=== PATIENT | female | born 1985 | race Caucasian/White ===

== ENCOUNTER 2016-07-14 12:28 | Outpatient (CLI) | payer OTHER ==
--- NOTE | 2016-07-14 14:42 | Ultrasound Report ---
OB ULTRASOUND: 07/14/2016 CLINICAL INDICATION: anatomy. 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 LAST MENSTRUAL PERIOD 02/10/2016 Clinical Age 22 weeks 1 day US Age 22 weeks 1 day EFW Hadlock 493 g EFW% Hadlock 52 % Heart Rate 150 bpm EDC 11/16/2016 US EDC 11/16/2016 BPD Hadlock 21 weeks 5 days; means mm 51.9 HC Hadlock 22 weeks 0 days; means mm 197.8 AC Hadlock 22 weeks 6 days; means mm 180.7 FL Hadlock 21 weeks 5 days; means mm 36.8 Presentation moving Placental Location anterior R Cervical Length 3.9 cm Amniotic Fluid 15.6 (50-95%) FINDINGS: There is a single viable intrauterine gestation, in variable position. heart rate is 150 BPM. The placenta is anterior, without evidence of previa. Amniotic fluid volume is normal, with an VIANEY of 15.6. By size, the fetus measures 22.1 weeks (22.1 weeks by LMP). The following anatomic structures were visualized and appear normal: The intracranial contents, including the ventricles and posterior fossa; the lips and orbits; the spine; the heart, including 4 chamber view and outflow tracts, and diaphragm; the abdominal contents, including the stomach, the bilateral kidneys, and urinary bladder, as well as a normal 3 vessel cord insertion; 4 limbs. Mild bilateral renal pelviectasis is present, measuring 4 mm on each side. No free fluid or adnexal lesion is appreciated. IMPRESSION: SINGLE VIABLE INTRAUTERINE GESTATION, WITH SIZE IN KEEPING WITH LMP DATING. MILD BILATERAL RENAL PELVIECTASIS. FOLLOWUP IN THE THIRD TRIMESTER IS RECOMMENDED. OTHERWISE, NORMAL ANATOMIC SURVEY. MTDD
== END 2016-07-14 12:29 | disposition home or self-care (01) ==
LOC: DI 12:28
PROVIDERS: ATTEND Advanced Practice Midwife
DX: Z36 Encounter for antenatal screening of mother (principal); O36.8920 Maternal care for other specified fetal problems, second trimester, not applicable or unspecified
CPT/HCPCS: 76811

== ENCOUNTER 2016-12-02 02:11 | Outpatient (CLI) | payer OTHER | END 2016-12-02 02:12 | disposition critical access hospital (66) | LOC: EMS 02:11 | PROVIDERS: ATTEND Surgery | DX: R42 Dizziness and giddiness (principal) | CPT/HCPCS: A0425; A0429 ==

== ENCOUNTER 2016-12-02 02:37 | Emergency (ER) | payer OTHER ==
--- NOTE | 2016-12-02 03:08 | ED Physician Documentation ---
History of Present Illness - Stated complaint Stated Complaint: DIZZINESS - Chief complaint Chief Complaint: General - History obtained from History obtained from: Patient, Family (spouse) - History of Present Illness Timing: Today Pain level now: 0 Improved by: no ameliorating factors Worsened by: no exacerbating factors - Additonal information Additional information: patient delivered 40 week 5 day baby, induced vaginal delivery on 11/29/16 at [facility]. Patient says she had HTN towards the end of the and received a dose of beta-viviana for this while in the hospital, but she has otherwise not needed antihypertensive medications before or after this. She was cautioned to watch for HTN post-delivery at home, particularly systolic readings of 160 or greater. Patient awoke 1:30 AM this morning to breast feed her when she developed shaking chills, lightheadedness. Patient took her blood pressure with home cuff and had several consecutive readings of hypertensive readings, with diastolic as high as 100s and systolic as high as 160s. her symptoms have resolved and on my evaluation, she has no c/o. She has had mild swelling, BLE> BUE. Denies headache, abdominal pain, dyspnea, visual changes. PD PAST MEDICAL HISTORY - Past Medical History Past Medical History: No Cardiovascular: None Respiratory: None Neuro: None Endocrine/Autoimmune: None GI: None DISTILLERY MILLER: None : None HEENT: None Psych: None Musculoskeletal: None Derm: None Other Past Medical History: POST DELIVERY HYPERTENSION.... - Past Surgical History Past Surgical History: No - Allergies Allergies/Adverse Reactions: Allergies Allergy/AdvReac Type Severity Reaction Status Date / Time amoxicillin AdvReac Rash Verified 12/02/16 02:50 azithromycin [From Zithromax] AdvReac Rash Verified 12/02/16 02:50 - Social History Does the pt smoke?: No Smoking Status: Never smoker Does the pt drink ETOH?: No Does the pt have substance abuse?: No - Immunizations Immunizations are current?: Yes - POLST Patient has POLST: No PD ED PE NORMAL - Vitals Vital signs reviewed: Yes - General General: Alert and oriented X 3, No acute distress, Well developed/nourished - Neck Neck: Supple, no meningeal sign - Cardiac Cardiac: RRR, No murmur - Respiratory Respiratory: No respiratory distress, Clear bilaterally - Abdomen Abdomen: Soft, Non tender - Extremities Extremities: Other (1+ BLE edema, feet and ankles) - Neuro Neuro: Alert and oriented X 3, mold builder 2-12 intact, No motor deficit, No sensory deficit Results - Vitals Vitals: Oxygen O2 Source Room air - Labs Labs: Laboratory Tests 12/02/16 12/02/16 12/02/16 03:45 04:01 04:01 WBC 13.2 H RBC 4.04 L Hgb 12.5 Hct 36.3 L MCV 89.8 MCH 30.8 MCHC 34.4 RDW 13.1 Plt Count 274 MPV 6.7 L Neut # 10.5 H Lymph # 1.8 Dupage # 0.6 Eos # 0.2 Baso # 0.1 Absolute Nucleated RBC 0.00 Nucleated RBCs 0.0 Sodium 139 Potassium 3.7 Chloride 104 Carbon Dioxide 25 Anion Gap 10.0 BUN 9 Creatinine 0.6 Estimated GFR (MDRD) 115 Glucose 86 Calcium 8.7 Total Bilirubin 0.3 AST 30 ALT 27 Alkaline Phosphatase 77 Total Protein 6.3 L Albumin 3.1 L Globulin 3.2 Albumin/Globulin Ratio 1.0 Lipase 20 L Urine Color ORANGE Urine Clarity CLEAR Urine pH 7.0 Ur Specific [place] <=1.005 Urine Protein NEGATIVE Urine Glucose (UA) NEGATIVE Urine Ketones NEGATIVE Urine Occult Blood LARGE H Urine Nitrite NEGATIVE Urine Bilirubin NEGATIVE Urine Urobilinogen 0.2 (NORMAL) Ur Leukocyte Esterase SMALL H Urine RBC TNTC H Urine WBC 11-25 H Ur Squamous Epith Cells RARE Squamous Urine Bacteria Rare Ur Microscopic Review INDICATED Urine Culture Comments INDICATED PD MEDICAL DECISION MAKING - ED course Complexity details: reviewed results, re-evaluated patient, considered differential, d/w patient ED course: Patient does not meet criteria for pre-eclampsia (post-); while she has the HTN criteria, she lacks proteinuria and she lacks other criteria (such as headache, visual changes). Per patient's request, I discussed her case with Shruthitasha Nava, who is one of the mid-wifes that cared for patient while she was in the hospital. Shruthi Nava agrees patient's results do not suggest pre- eclampsia. I explained to patient that her blood pressure readings are high, but that, from an emergency standpoint, I would not recommend prescribing antihypertensive medications at this time. 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 Departure - Departure Disposition: 01 Home, Self Care Clinical Impression: Hypertension Qualifiers: Hypertension type: unspecified secondary hypertension Qualified Code(s): I15.9 - Secondary hypertension, unspecified Condition: Good Instructions: ED Hypertension Poss Discharge Date/Time: 12/02/16 06:48
[2016-12-02 03:54] LABS: BILIRUBIN,URINE NEGATIVE (NEGATIVE)
[2016-12-02 03:55] LABS: UA w/ MICROSCOPIC CHARGE YES
[2016-12-02] MEDS ORDERED: SODIUM CHLORIDE FLUSH 0.9% 10 ML SYRINGE IVP ONE (03:56)
[2016-12-02 03:59] LABS: UR CULTURE IF IND INDICATED
[2016-12-02 04:07] LABS: BASOPHILS # (AUTO) 0.1 10^3/uL (0.0-0.1); BASOPHILS % (AUTO) 0.5 %; EOSINOPHILS # (AUTO) 0.2 10^3/uL (0.0-0.7); EOSINOPHILS % (AUTO) 1.9 %; HCT - HEMATOCRIT 36.3 % (37.0-47.0); HGB - HEMOGLOBIN 12.5 g/dL (12.0-16.0); LYMPHOCYTES # (AUTO) 1.8 10^3/uL (1.5-3.5); LYMPHOCYTES % (AUTO) 13.5 %; MEAN CORPUSCULAR HEMOGLOBIN 30.8 pg (27.0-31.0); MEAN CORPUSCULAR HGB CONC 34.4 g/dL (32.0-36.0); MEAN CORPUSCULAR VOLUME 89.8 fL (81.0-99.0); MEAN PLATELET VOLUME 6.7 fL (7.9-10.8); MONOCYTES # (AUTO) 0.6 10^3/uL (0.0-1.0); MONOCYTES % (AUTO) 4.8 %; NEUTROPHILS # (AUTO) 10.5 10^3/uL (1.5-6.6); NEUTROPHILS % (AUTO) 79.3 %; RED BLOOD COUNT 4.04 10^6/uL (4.20-5.40); RED CELL DISTRIBUTION WIDTH 13.1 % (12.0-15.0); UNCORRECTED WHITE BLOOD COUNT 13.2 x10^3/uL; WHITE BLOOD COUNT 13.2 x10^3/uL (4.8-10.8)
[2016-12-02 04:19] LABS: BILIRUBIN,TOTAL 0.3 mg/dL (0.2-1.0); CALCIUM 8.7 mg/dL (8.5-10.3); CREATININE 0.6 mg/dL (0.4-1.0); POTASSIUM 3.7 mmol/L (3.5-5.0); TOTAL PROTEIN 6.3 g/dL (6.7-8.2)
[2016-12-02 06:40] VITALS: BP 153/92
== END 2016-12-02 06:48 | disposition home or self-care (01) ==
LOC: EDUNIT# → ED 02:37
DX: O90.89 Other complications of the puerperium, not elsewhere classified (principal); I15.9 Secondary hypertension, unspecified
CPT/HCPCS: 36415; 80053; 81001; 81003; 83690; 85025; 87086; 99283; 99284